=== PATIENT | female | born 1980 | race Caucasian/White ===

== ENCOUNTER 2017-11-13 10:15 | Emergency (ER) | payer OTHER, SELFPAY ==
[2017-11-13 10:16] VITALS: BP 131/50; PULSE 79; RESP 20; TEMP 36.6; O2SAT 99; BMI 21.3
--- NOTE | 2017-11-13 10:46 | ED.VISSUMM ---
- ER Visit Summary Date of Service: 11/13/17 Chief Complaint: Right arm pain History of Present Illness: The patient is a 37 F with right arm pain that started yesterday morning. She has pain that starts in her mid upper right arm and then radiates down into her hand. The pain is mostly on her volar/anterior side. The pain was very severe overnight. She reports some associated tingling, nausea, and chills. She is breast-feeding and does not like to take medications. She took some Tylenol but it did not seem to help. The patient had left jaw pain at her TMJ recently and she denies chest pain or shortness of breath. Denies neck pain or injury. Denies headache. Denies photophobia or visual changes. Denies rash. Denies any wrist pain or history of carpal tunnel. Denies any history of MS or other nerve diseases. Physical Examination: Afebrile and vital signs unremarkable. Patient is sitting in no acute distress. Alert and oriented. Cranial nerves grossly intact. Good range of motion of her neck. Neck is nontender. Shoulder unremarkable. Joints unremarkable. Skin appears normal. Good perfusion, capillary refill, and pulses. Subjective paresthesias in the right arm anterior/volar side. No weakness. No other lateralizing abnormalities. Heart regular. Lungs clear. Test Results: None indicated Emergency Department Course and Treatment: Patient does not have symptoms consistent with a stroke. She has no risk factors or other findings to suggest dissection or vascular pathology. No ACS symptoms or risk factors. No neck injury, trauma, or pain. No headache or meningeal signs, or rash. No fever here. No other associated symptoms. I suspect this is a radiculopathy, lower cervical spine. Patient is breast-feeding and does not want to take steroids or anti-inflammatories. She may continue taking Tylenol. She will try behavior modification. She will follow-up with her PCP. There are other rare conditions that can cause this such as MS. I believe she should try the medication first and follow-up with her PCP. This can be worked up as an outpatient. If she does have any new or worsening symptoms, she should return. Treatment Plan: As above Disposition: Discharged Impression: 1. Right arm pain This note was generated with [employer] software. It may contain incorrect words, spelling, and punctuation that were not noted in review of the chart prior to signing ED Disposition - Plan for ED Patient: Chief Complaint: Upper Extremity Injury Referrals: Yuli Jordan MD [Primary Care Provider] -
--- NOTE | 2017-11-13 10:50 | ED.DCSUM_ITS ---
- ER Visit Summary Date of Service: 11/13/17 Chief Complaint: Right arm pain History of Present Illness: The patient is a 37 F with right arm pain that started yesterday morning. She has pain that starts in her mid upper right arm and then radiates down into her hand. The pain is mostly on her volar/anterior side. The pain was very severe overnight. She reports some associated tingling , nausea, and chills. She is breast-feeding and does not like to take medications. She took some Tylenol but it did not seem to help. The patient had left jaw pain at her TMJ recently and she denies chest pain or shortness of breath. Denies neck pain or injury. Denies headache. Denies photophobia or visual changes. Denies rash. Denies any wrist pain or history of carpal tunnel. Denies any history of MS or other nerve diseases. Physical Examination: Afebrile and vital signs unremarkable. Patient is sitting in no acute distress. Alert and oriented. Cranial nerves grossly intact. Good range of motion of her neck. Neck is nontender. Shoulder unremarkable. Joints unremarkable. Skin appears normal. Good perfusion, capillary refill, and pulses. Subjective paresthesias in the right arm anterior /volar side. No weakness. No other lateralizing abnormalities. Heart regular. Lungs clear. Test Results: None indicated Emergency Department Course and Treatment: Patient does not have symptoms consistent with a stroke. She has no risk factors or other findings to suggest dissection or vascular pathology. No ACS symptoms or risk factors. No neck injury, trauma, or pain. No headache or meningeal signs, or rash. No fever here. No other associated symptoms. I suspect this is a radiculopathy, lower cervical spine. Patient is breast- feeding and does not want to take steroids or anti-inflammatories. She may continue taking Tylenol. She will try behavior modification. She will follow- up with her PCP. There are other rare conditions that can cause this such as MS. I believe she should try the medication first and follow-up with her PCP. This can be worked up as an outpatient. If she does have any new or worsening symptoms, she should return. Treatment Plan: As above Disposition: Discharged Impression: 1. Right arm pain This note was generated with [employer] software. It may contain incorrect words, spelling, and punctuation that were not noted in review of the chart prior to signing ED Disposition - Plan for ED Patient: Chief Complaint: Upper Extremity Injury Referrals: Yuli Jordan MD [Primary Care Provider] -
--- NOTE | 2017-11-13 10:50 | ED.DEP ---
ED Disposition - Plan for ED Patient: Chief Complaint: Upper Extremity Injury Instructions: ED Cervical Radiculopathy Referrals: Yuli Jordan MD [Primary Care Provider] -
[2017-11-13 11:00] VITALS: BP 125/75; PULSE 80; RESP 14; O2SAT 99
== END 2017-11-13 11:28 | disposition home or self-care (01) ==
LOC: ED 11:10
PROVIDERS: Emergency Provider Emergency Medicine; Family Provider Internal Medicine; PCP Internal Medicine
DX: M79.601 Pain in right arm (principal); R20.2 Paresthesia of skin; R11.0 Nausea; R68.83 Chills (without fever); R68.84 Jaw pain
CPT/HCPCS: 99282

== ENCOUNTER 2018-10-09 12:20 | Emergency (ER) | payer OTHER, SELFPAY ==
[2018-10-09 12:20] VITALS: BP 133/72; PULSE 69; RESP 16; TEMP 36.6; O2SAT 100; BMI 20.5
[2018-10-09 12:46] VITALS: O2SAT 99
--- NOTE | 2018-10-09 12:46 | EKG12_ITS ---
Test Reason : Blood Pressure : / mmHG Vent. Rate : 072 BPM Atrial Rate : 072 BPM P-R Int : 126 ms QRS Dur : 098 ms QT Int : 382 ms P-R-T Axes : 009 002 -01 degrees QTc Int : 418 ms Normal sinus rhythm Cannot rule out Anterior infarct , age undetermined Abnormal ECG Confirmed by ELOISA AYALA, SUZETTE ([id number]), desk editor NITESH CALDERON ([id number]) on 10/11/2018 9:26:41 AM Referred By: JOHANNA Confirmed By:SUZETTE AMIN MD
--- NOTE | 2018-10-09 12:46 | RAD_ITS ---
STUDY: X-RAY CHEST REASON FOR EXAM: Female, 38 years old. Intermittent chest pain. Dizziness and left arm tingling. TECHNIQUE: Single AP portable view of the chest. COMPARISON: None. FINDINGS: EKG electrodes are seen. The lungs are clear and expanded. There is no demonstrated pleural abnormality. Normal size heart. Normal mediastinum and mario. Normal visualized pulmonary arteries. Normal visualized aortic arch and descending thoracic aorta. Normal visualized thoracic spine. Normal visualized ribs, clavicles, and shoulders. There is no demonstrated abnormality of the visualized soft tissue structures of the upper abdomen. RAD/Chest 1 View (Portable) IMPRESSION: Normal x-ray examination of the chest. Electronically Signed: Elpidio Paul, at 13:31 EDT , Service support ,
--- NOTE | 2018-10-09 12:47 | VDLE_ITS ---
Reason For Study: CHEST PAIN RIGHT LEFT GSV is normal. GSV is normal. CFV is compressible, spontaneous, phasic, CFV is compressible, spontaneous, phasic, competent and demonstrates normal competent, and demonstrates normal augmentation. augmentation. FV is compressible, spontaneous, phasic, FV is compressible, spontaneous, phasic, competent and demonstrates normal competent and demonstrates normal augmentation. augmentation. POP V is compressible, spontaneous, phasic, POP V is compressible, spontaneous, phasic, competent and demonstrates normal competent and demonstrates normal augmentation. augmentation. T/P Trunk is compressible. T/P Trunk is compressible. PTV is compressible. PTV is compressible. RT PerV is compressible. LT PerV is compressible. Procedure Exam performed portable in ED. A preliminary report was called and/or faxed to ED. Interpretation Summary No evidence for acute deep venous thrombosis bilateral lower extremities with patent and compressible bilateral great saphenous veins. Ordering Physician: Lauro Bowman Referring Physician: SURAJ LOZANO Performed By: Lesley Millan, RDCS, RVT
[2018-10-09 13:18] LABS: Absolute Lymphocyte Count 1.01 X10^3/ul (0.83-4.51); Absolute Neutrophil Count 6.4 X10^3/uL (2.0-7.7); Basophil# 0.01 X10^3/uL; Basophil% 0.1 % (0-1); Eosinophil# 0.03 X10^3/uL; Eosinophils% 0.4 % (0-5); Hematocrit 36.7 % (37-47); Hemoglobin 12.4 g/dl (12.0-15.0); Lymphocyte # 1.01 X10^3/ul (4.0); Lymphocyte % 12.9 % (19-41); Mean Corp Hgb Conc 33.8 g/gl (32-36); Mean Corpuscular Hgb 31.5 pg (27.0-32.0); Mean Corpuscular Volume 93.1 fL (81-99); Mean Platelet Vol. 9.9 fl (6.2-12.0); Monocyte# 0.38 X10^3/uL; Monocyte% 4.9 % (0-10); Neutrophil # 6.39 X10^3/uL (2.7-7.7); Neutrophil % 81.6 % (47-70); Platelet Count 207 K/mm3 (150-450); RBC Distribution Width CV 13.4 % (11.6-14.6); RBC Distribution Width SD 46.1 fl (35.1-43.9); Red Blood Count 3.94 M/mm3 (4.2-5.4); White Blood Count 7.8 K/mm3 (4.4-11.0)
[2018-10-09 13:19] LABS: POSITIVE COUNT NO; POSITIVE DIFFERENTIAL NO; POSITIVE MORPHOLOGY NO
[2018-10-09] MEDS: 0.9% Normal Saline 1,000 ML 1000 ML IV (13:20)
[2018-10-09 13:34] LABS: Anion Gap 5 (5-15); BUN 9 mg/dL (7-18); BUN/Creat Ratio 14.4 RATIO (10-20); Calcium,Total 8.8 mg/dL (8.5-10.1); Chloride 106 mmol/L (98-107); Creatinine, Serum 0.63 mg/dL (0.55-1.02); EST Glomerular Filtration Rate 112 mL/min (>60); Est Glom Filt Rate - Afr Amer 135 mL/min (>60); Estimated Creatinine Clearance 101.94 ml/min; Glucose 116 mg/dL (74-106); Sodium Level 137 mmol/L (136-145)
--- NOTE | 2018-10-09 13:56 | ED.VISSUMM ---
- ER Visit Summary Date of Service: 10/09/18 Chief Complaint: Chest pain History of Present Illness: The patient is a [address] Jordan. She reports that he has chest pain that began at 10:00 this morning while she was at rest. Some intermittent pain lasting minutes of time. Is 1 out of 10 at worst and she is pain-free currently. Is worsened by nothing including exertion, breathing, or movement. Is relieved by deep breaths. She has had nausea. No vomiting, diaphoresis, shortness of breath. She reports that she has had this frequently, but she is not sure of the cause. Patient is a at 7 weeks of . She denies any vaginal bleeding or discharge. She denies any calf pain or ankle swelling. No personal family history of DVT. However, they did fly to the [place] at the end of July. Physical Examination: Vitals: Stable. Afebrile. General: Well-nourished and well-developed. Head: Normocephalic atraumatic. Neck: Supple, no lymphadenopathy. No JVD. Nontender. Cardiovascular: Regular rate and rhythm. No murmurs. Respiratory: No respiratory distress. Clear to auscultation bilaterally. Abdominal: Soft, nontender, nondistended, normal bowel sounds. No guarding, rebound, or peritoneal signs. Back: Nontender. Extremities: Nontender, no edema. Skin: Normal color, no rash. Neurologic: Alert and oriented ?3. Cranial nerves II through XII are intact. Normal strength and sensation. Psych: Normal affect. Test Results: EKG is sinus at [address] changes. Troponin is negative. Lower extreme Dopplers are negative. Chem-7 is more for glucose 116. CBC is more for 7 neutrophils 82 and lymphocytes of 13. Chest x-ray is normal. Emergency Department Course and Treatment: Patient is resting comfortably. She refused pain medications. Treatment Plan: Discussed the patient at this time I do not have an explanation for her chest pain. She has been told in the past that it is from reflux. I discussed her that I am not able to say for certain what is causing this. She is instructed to follow-up Dr. Biggs in 1-2 days if not improving. Return to the emergency department for any worsening symptoms. Disposition: To home in improved and stable condition. Impression: 1. Atypical chest pain. 2. First trimester . This note was generated with [employer] dictation software. It may contain incorrect words, spelling, and punctuation that were not noted in review of the chart prior to signing ED Disposition - Plan for ED Patient: Disposition: Home or Assisted Living Instructions: ED Chest Pain Atypical Unkn Cause Referrals: Yuli Jordan MD [Primary Care Provider] - 2 Days
[2018-10-09 14:00] VITALS: BP 99/53; PULSE 67; RESP 14
== END 2018-10-09 14:10 | disposition home or self-care (01) ==
LOC: ED 13:07
PROVIDERS: Emergency Provider Emergency Medicine; Family Provider Internal Medicine; PCP Internal Medicine
DX: O26.891 Other specified pregnancy related conditions, first trimester (principal); R07.89 Other chest pain; Z3A.01 Less than 8 weeks gestation of pregnancy
CPT/HCPCS: 71045; 80048; 84484; 85025; 93005; 93970; 96360; 99285; J7030; A4216